=== PATIENT | male | born 1975 | race Hispanic/Latino ===

== ENCOUNTER 2017-01-07 03:17 | Inpatient (IN) | payer OTHER, BC ==
[2017-01-07 03:47] VITALS: BMI 21.5
[2017-01-07 04:41] LABS: BASO % 0.7 % (0.0-2.0); EOS # 0.1 K/uL (0.0-0.7); EOS % 2.2 % (0.0-4.0); HEMATOCRIT 39.5 % (35.0-51.0); LYMPH # 1.6 K/uL (1.0-4.3); LYMPH % 31.1 % (20.0-40.0); MEAN CELL VOLUME 94.1 fl (80.0-94.0); MEAN CORPUSCULAR HEMOGLOBIN 32.7 pg (27.0-31.0); MEAN CORPUSCULAR HGB CONC 34.8 g/dL (33.0-37.0); MEAN PLATELET VOLUME 8.6 fl (7.2-11.7); MONO # 0.7 K/uL (0.0-0.8); MONO % 13.3 % (0.0-10.0); NEUT # 2.7 K/uL (1.8-7.0); NEUT % 52.7 % (50.0-75.0); NRBC % 0.1 % (0.0-0.0); RED CELL DISTRIBUTION WIDTH 12.4 % (11.5-14.5); WHITE BLOOD COUNT 5.1 K/uL (4.8-10.8)
[2017-01-07 04:52] LABS: ALCOHOL SERUM 128 mg/dl (0-10); BLOOD UREA NITROGEN 17 mg/dl (9-20); CALCIUM 9.6 mg/dL (8.4-10.2); CARBON DIOXIDE 21 mmol/L (22-30); CHLORIDE 111 mmol/L (98-107); GFR AFRICAN-AMERICAN > 60; GLUCOSE,RANDOM 95 mg/dL (75-110); POTASSIUM 3.9 MMOL/L (3.6-5.0); SODIUM 145 mmol/l (132-148)
--- NOTE | 2017-01-07 05:26 | ED PDOC ---
HPI: Altered Mental Status Time Seen by Provider: 01/07/17 03:25 Chief Complaint (Nursing): Weakness/Neurological Deficit Chief Complaint (Provider): Weakness/ Neurological Deficit History Per: Patient Onset/Duration Of Symptoms: Days (x10) Additional History Per: Family () Associated Symptoms: denies: Fever Additional Complaint(s): Luis Rivers is a 41 year old male with no pertinent past medical history who presents to the ED accompanied by his with a chief complaint of weakness/ neurological deficit. Associated symptoms include left sided arm and leg weakness onset x10 days prior to arrival, but denies any changes in speech, numbness or tingling on the left side of arm and leg. Both patient and state that patient has been forgetful for the last five days. Past Medical History Reviewed: Historical Data, Nursing Documentation, Vital Signs Vital Signs: Last Vital Signs Temp 98.1 F 01/07/17 03:25 Pulse 78 01/07/17 03:25 Resp 15 01/07/17 03:25 BP 110/57 L 01/07/17 03:25 Pulse Ox 96 01/07/17 03:25 - Medical History PMH: No Chronic Diseases - Surgical History Surgical History: No Surg Hx - Family History Family History: States: Unknown Family Hx - Home Medications Home Medications: Ambulatory Orders Medication Instructions Recorded Aspirin [Aspirin Chewable] 1 tab PO DAILY 01/07/17 Lactobacillus Combination No.8 1 tab PO DAILY 01/07/17 [Adult Probiotic] Multivit-Min/FA/Lycopen/Lutein 1 tab PO DAILY 01/07/17 [Centrum Silver Men Tablet] Keyes-3 Fatty Acids [Fish Oil] 1 tab PO DAILY 01/07/17 - Allergies Allergies/Adverse Reactions: Allergies Allergy/AdvReac Type Severity Reaction Status Date / Time acetaminophen [From Percocet] Allergy ITCHING Verified 01/07/17 15:51 oxycodone [From Percocet] Allergy ITCHING Verified 01/07/17 15:51 Review of Systems ROS Statement: Except As Marked, All Systems Reviewed And Found Negative Constitutional: Negative for: Fever, Chills Eyes: Negative for: Pain Cardiovascular: Negative for: Chest Pain Musculoskeletal: Negative for: Arm Pain, Leg Pain Neurological: Positive for: Weakness (mild left arm and leg ), Other (tingling) . Negative for: Numbness, Change in Speech Physical Exam - Reviewed Nursing Documentation Reviewed: Yes Vital Signs Reviewed: Yes - Physical Exam Appears: Positive for: Well, No Acute Distress Head Exam: Positive for: ATRAUMATIC, NORMAL INSPECTION, NORMOCEPHALIC Skin: Positive for: Normal Color, Warm, Dry Eye Exam: Positive for: Normal appearance, EOMI, PERRL ENT: Positive for: Normal ENT Inspection Neck: Positive for: Normal, Painless ROM, Supple Cardiovascular/Chest: Positive for: Regular Rate, Rhythm. Negative for: Tachycardia Respiratory: Positive for: Normal Breath Sounds. Negative for: Wheezing, Respiratory Distress Gastrointestinal/Abdominal: Positive for: Normal Exam, Soft. Negative for: Tenderness Back: Positive for: Normal Inspection Extremity: Positive for: Normal ROM Neurologic/Psych: Positive for: Alert, wordpress developer II-XII (normal), Oriented, Motor/ Sensory Deficits (mild weakness left arm and left leg), Cerebellar Tests (normal ), Gait (steady). Negative for: Aphasia, Facial Droop - Laboratory Results Result Diagrams: 01/07/17 04:35 01/07/17 04:35 - ECG O2 Sat by Pulse Oximetry: 96 Pulse Ox Interpretation: Normal (RA) Medical Decision Making Medical Decision Makin: Initial Impression: CVA vs. multiple sclerosis vs. brain tumor. other neurological conditions considered but not listed. Initial Plan: * Head CT scan * Alcohol serum stat * Basic Metabolic Panel * Drug Screen * CBC With differentials * Re-Eval 0529: CT HEAD IMPRESSION: 1. Hyperdense or hemorrhagic mass within RIGHT frontal region with extensive surrounding edema, likely primary malignancy or metastasis. Recommend MRI. 2. Incidental/non-acute findings are described above [address] Jones who recommends dexamethasone IV q6 , MRI, and bed elevation. Scribe~Attestation: Documented by Eran Crawford acting as a scribe for Yanelis Schulte MD. Provider~Scribe~Attestation: All medical record entries made by theHanywere at my direction and personally dictated by me. I have reviewed the chart and agree that the record accurately reflects my personal performance of the history, physical exam, medical decision making, and the department course for this patient. I have also personally directed, reviewed, and agree with the discharge instructions and disposition. Disposition - Clinical Impression Clinical Impression: Brain mass - Patient ED Disposition Is Patient to be Admitted: Yes Discussed With : Felipe Addison Doctor Will See Patient In The: Hospital Counseled Patient/Family Regarding: Studies Performed, Diagnosis - Disposition Disposition Time: 06:00 Condition: FAIR - Pt Status Changed To: Hospital Disposition Of: Inpatient - Admit Certification Admit to Inpatient:: After my assessment, the patient will require hospitalization for at least two midnights. This is because of the severity of symptoms shown, intensity of services needed, and/or the medical risk in this patient being treated as an outpatient. - POA Present On Arrival: None
--- NOTE | 2017-01-07 05:29 | CT ---
EXAM: CT Head Without Intravenous Contrast CLINICAL HISTORY: 41 years old, male; Signs and symptoms; Weakness, facial; Additional info: Weakness left side TECHNIQUE: Axial computed tomography images of the head/brain without intravenous contrast. This CT exam was performed using one or more of the following dose reduction techniques: automated exposure control, adjustment of the mA and/or kV according to patient size, and/or use of iterative reconstruction technique. Coronal and sagittal reformatted images were created and reviewed. COMPARISON: No relevant prior studies available. FINDINGS: Brain: Extensive vasogenic edema within RIGHT frontal region. Poorly defined slightly hyperdense lesion within RIGHT frontal region, roughly 2.2 x 2.2 by 2.4 cm. Patent basilar cisterns. Prominent cisterna magna. Grossly preserved wadsworth-white matter differentiation. Midline shift: 0.3-0.4 cm RIGHT to LEFT shift. Ventricles: No hydrocephalus. Bones/joints: No acute fracture. Soft tissues: Unremarkable. Sinuses: No acute sinusitis. Mastoid air cells: No mastoid effusion. Orbits: Unremarkable as visualized. IMPRESSION: 1. Hyperdense or hemorrhagic mass within RIGHT frontal region with extensive surrounding edema, likely primary malignancy or metastasis. Recommend MRI. 2. Incidental/non-acute findings are described above.
[2017-01-07] MEDS ORDERED: Dexamethasone 10 MG in Sodium Chloride 0.9% 50 ML IV ONE (05:38)
[2017-01-07] MEDS ORDERED: Gadodiamide 287 MG/ML VIAL (15ML) IV ONE (07:44)
--- NOTE | 2017-01-07 09:03 | MRI ---
PROCEDURE: MRI BRAIN WITH AND WITHOUT CONTRAST HISTORY: brain mass COMPARISON: 01/07/2017 CT brain TECHNIQUE: Multiplanar, multisequence MR images of the brain were obtained with and without intravenous contrast enhancement. FINDINGS: HEMORRHAGE: None DWI: See discussion below. BRAIN PARENCHYMA: Re-demonstration of extensive vasogenic edema in the right frontal lobe with a roughly 3.3 by 2.8 by 3.1 centimeter heterogeneously enhancing mass in the superior right frontal lobe. Associated mass-effect upon the right frontal horn with minimal midline shift. No atrophy or chronic microvascular ischemic changes. ENHANCEMENT: See discussion above. VENTRICLES: Unremarkable. No hydrocephalus. CRANIUM: Unremarkable. ORBITS: Grossly unremarkable. PARANASAL SINUSES/MASTOIDS: Clear VASCULAR SYSTEM: Skull base flow voids intact. OTHER FINDINGS: None . IMPRESSION: Re-demonstration of extensive vasogenic edema in the right frontal lobe with a roughly 3.3 by 2.8 by 3.1 centimeter heterogeneously enhancing mass in the superior right frontal lobe. Associated mass-effect upon the right frontal horn with minimal midline shift. Findings most likely represent primary malignancy such is glioblastoma/astrocytoma.
[2017-01-07] MEDS ORDERED: Dexamethasone 4 MG in Sodium Chloride 0.9% 50 ML IV SCH ×2 (10:00→20:00)
--- NOTE | 2017-01-07 15:17 | CP.PCM.HP ---
History of Present Illness - History of Present Illness History of Present Illness: CC: Weakness L side. 41 y/o M, came to ER [facility] to be evaluated for Weaknesses of L arm, L leg for 5 days without relief, associated symptom: forgetful for the last 5 days. Worsening symptom: Weight loss for the last few month up to 13 Lb, poor appetite. 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 Pt denied: Fever, chills, n/v/d, abdominal pain, CP, numbness, syncope, slurred speech, SOB, urinary symptoms, sick contact. PMHx: Hx of Lymphoma at 22 yrd old , no other chronic Hx. CT Head: Hyperdence or hemorrhagic mass R frontal lobe with extensive edema likely primary malignancy or metastasis. MRI Brain: Extensive vasogenic edema R frontal lobe, superior R frontal lobe mass. Present on Admission - Present on Admission Any Indicators Present on Admission: No Review of Systems - Constitutional Constitutional: Weight Loss, Weakness - EENT Eyes: Other (negative) Ears: Other (negative) Nose/Mouth/Throat: Other (negative) - Cardiovascular Cardiovascular: Other (negative) - Respiratory Respiratory: Other (nwgative) - Gastrointestinal Gastrointestinal: Other (negative) - Genitourinary Genitourinary: Other (negative) - Musculoskeletal Musculoskeletal: Other (negative) - Integumentary Integumentary: Other (negative) - Neurological Neurological: Abnormal Gait, Confusion, Focal Weakness (LUE , LLE) - Psychiatric Psychiatric: Other (negative) - Endocrine Endocrine: Other (negative) - Hematologic/Lymphatic Hematologic: Other (negative) Past Patient History - Past Medical History & Family History Past Medical History?: Yes Pertinent Family History: Unknown - Past Social History Smoking Status: Former Smoker Alcohol: Occasional Drugs: Cannabis Home Situation {Lives}: With Family - CARDIAC Hx Cardiac Disorders: No - PULMONARY Hx Respiratory Disorders: No - NEUROLOGICAL Hx Neurological Disorder: No - HEENT Hx HEENT Problems: No - RENAL Hx Chronic Kidney Disease: No - ENDOCRINE/METABOLIC Hx Endocrine Disorders: No - HEMATOLOGICAL/ONCOLOGICAL Hx Blood Disorders: Yes Hx AIDS: No Hx Human Immunodeficiency Virus (HIV): No Hx Lymphoma: Yes - INTEGUMENTARY Hx Dermatological Problems: No - MUSCULOSKELETAL/RHEUMATOLOGICAL Hx Musculoskeletal Disorders: No Hx Falls: No - GASTROINTESTINAL Hx Gastrointestinal Disorders: No - GENITOURINARY/GYNECOLOGICAL Hx Genitourinary Disorders: No - PSYCHIATRIC Hx Psychophysiologic Disorder: Yes Hx Substance Use: Yes (MARIJUANA) - SURGICAL HISTORY Hx Surgeries: Yes - ANESTHESIA Hx Anesthesia: Yes Hx Anesthesia Reactions: No Meds Allergies/Adverse Reactions: Allergies Allergy/AdvReac Type Severity Reaction Status Date / Time acetaminophen [From Percocet] Allergy ITCHING Verified 01/07/17 15:51 oxycodone [From Percocet] Allergy ITCHING Verified 01/07/17 15:51 Physical Exam - Constitutional Appears: No Acute Distress - Head Exam Head Exam: NORMAL INSPECTION - Eye Exam Eye Exam: EOMI, PERRL - ENT Exam ENT Exam: Normal Exam - Neck Exam Neck exam: Positive for: Normal Inspection - Respiratory Exam Respiratory Exam: NORMAL BREATHING PATTERN - Cardiovascular Exam Cardiovascular Exam: REGULAR RHYTHM - GI/Abdominal Exam GI & Abdominal Exam: Normal Bowel Sounds, Soft - Extremities Exam Extremities exam: Positive for: normal inspection - Back Exam Back exam: NORMAL INSPECTION - Neurological Exam Neurological exam: Alert, Motor Sensory Deficit (mild weakness Left arm and L leg, mild unsteady gait leaning towards to his left.), Oriented x3 - Psychiatric Exam Psychiatric exam: Normal Mood - Skin Skin Exam: Warm Results - Vital Signs Recent Vital Signs: Last Vital Signs Temp 98.2 F 01/07/17 09:20 Pulse 74 01/07/17 10:14 Resp 18 01/07/17 10:14 BP 124/77 01/07/17 09:20 Pulse Ox 94 L 01/07/17 09:20 reviewed J.P. - Labs Result Diagrams: 01/07/17 04:35 01/07/17 04:35 Labs: reviewed J.P. - Imaging and Cardiology CT scan - head Status: Report reviewed by me (JValerieP.) MRI - head Status: Report reviewed by me (Jelena) Assessment & Plan (1) Mass of right frontal lobe Status: Acute Priority: High Comment: Edema R frontal lobe. Mass most likely malignancy - Assessment and Plan (Free Text) Plan: Pt on Decadron, f/u Neurosurgical, Neuro and Hematology consult. Modalities of treatment discussed with Patient and Patient,s at bedside ,Patient will attempt to contact [facility] for transfering on Monday - Date & Time Date: 01/07/17 Time: 11:30
--- NOTE | 2017-01-07 17:50 | CP.PCM.CON ---
History of Present Illness - History of Present Illness History of Present Illness: Mr. Rivers is a 41-year-old man with a past medical history of stage 3 non- Hodgkin lymphoma that was treated with chemo/radiation 20 years ago, who presented to the ED last night with complaints of progressive left side weakness , confusion, and forgetfulness. MRI of the brain with and without contrast was done after the CT scan showed some concern, and confirmed the presence of a 3.5 X 3.5 cm contrast enhancing lesion with significant surrounding vasogenic edema in the right frontal lobe. The patient denied headache, nausea, visual changes , vomiting, other weakness or sensory changes. He does admit that he has had feelings of "frank-vu" and feelings that he was not in the right place recently. Review of Systems - Review of Systems All systems: reviewed and no additional remarkable complaints except Past Patient History - Past Medical History & Family History Past Medical History?: Yes - Past Social History Smoking Status: Former Smoker Alcohol: Occasional Drugs: Cannabis Home Situation {Lives}: With Family - CARDIAC Hx Cardiac Disorders: No - PULMONARY Hx Respiratory Disorders: No - NEUROLOGICAL Hx Neurological Disorder: No - HEENT Hx HEENT Problems: No - RENAL Hx Chronic Kidney Disease: No - ENDOCRINE/METABOLIC Hx Endocrine Disorders: No - HEMATOLOGICAL/ONCOLOGICAL Hx Blood Disorders: Yes Hx AIDS: No Hx Human Immunodeficiency Virus (HIV): No - INTEGUMENTARY Hx Dermatological Problems: No - MUSCULOSKELETAL/RHEUMATOLOGICAL Hx Musculoskeletal Disorders: No Hx Falls: No - GASTROINTESTINAL Hx Gastrointestinal Disorders: No - GENITOURINARY/GYNECOLOGICAL Hx Genitourinary Disorders: No - PSYCHIATRIC Hx Psychophysiologic Disorder: Yes Hx Substance Use: Yes (MARIJUANA) - SURGICAL HISTORY Hx Surgeries: Yes - ANESTHESIA Hx Anesthesia: Yes Hx Anesthesia Reactions: No Meds Allergies/Adverse Reactions: Allergies Allergy/AdvReac Type Severity Reaction Status Date / Time acetaminophen [From Percocet] Allergy ITCHING Verified 01/07/17 15:51 oxycodone [From Percocet] Allergy ITCHING Verified 01/07/17 15:51 - Medications Medications: Current Medications Dexamethasone 4 mg/ Sodium (Chloride) 50.4 mls @ 100 mls/hr IV 0200,0800,1400, 2000 MELANIE Physical Exam - Constitutional Appears: Well - Head Exam Head Exam: ATRAUMATIC, NORMAL INSPECTION, NORMOCEPHALIC - Eye Exam Eye Exam: EOMI, Normal appearance, PERRL - ENT Exam ENT Exam: Mucous Membranes Moist, Normal Exam - Neck Exam Neck exam: Positive for: Normal Inspection - Respiratory Exam Respiratory Exam: Clear to Auscultation Bilateral, NORMAL BREATHING PATTERN - Cardiovascular Exam Cardiovascular Exam: REGULAR RHYTHM - GI/Abdominal Exam GI & Abdominal Exam: Normal Bowel Sounds, Soft. absent: Tenderness - Neurological Exam Neurological exam: Abnormal Gait, Alert, CN II-XII Intact, Oriented x3, Reflexes Normal - Expanded Neurological Exam Expanded Cranial nerves: EOM's Intact: Normal, Facial Palsey w/Forehead Movement: Abnormal Left Ataxia: No Cerebellar Function: Finger to Nose: Abnormal Left, Heel to Kraus: Abnormal Left , Romberg: Normal Upper motor neuron: Babinski Sign: Abnormal Left, Solo Neglect: Abnormal Left, Pronator Drift: Abnormal Left, Sensory Extinction: Abnormal Left Sensory exam: Lower Extremity Light Touch: Abnormal Left, Lower Extremity Pin Prick: Abnormal Left, Upper Extremity Light Touch: Abnormal Left, Upper Extremity Pin Prick: Abnormal Left Neuro motor strength exam: Left Upper Extremity: 4, Right Upper Extremity: 5, Left Lower Extremity: 4, Right Lower Extremity: 5 DTR: Bicep Left: 3+, Bicep Right: 2+, Brachioradialis Left: 3+, Brachioradialis Right: 2+, Patellar Left: 3+, Patellar Right: 2+ - Psychiatric Exam Psychiatric exam: Normal Affect, Normal Mood - Skin Skin Exam: Dry, Intact, Normal Color, Warm Results - Vital Signs Recent Vital Signs: Last Vital Signs Temp 98.0 F 01/07/17 15:55 Pulse 77 01/07/17 15:55 Resp 18 01/07/17 15:55 BP 151/90 H 01/07/17 15:55 Pulse Ox 94 L 01/07/17 15:55 - Labs Result Diagrams: 01/07/17 04:35 01/07/17 04:35 - Imaging and Cardiology MRI - head Status: Image reviewed by me, Report reviewed by me (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 ) Assessment & Plan (1) Mass of right frontal lobe Assessment and Plan: Will increase dexamethasone to 10 mg Q8 hours, give GI Px, obtain CT of the chest/abdomen and pelvis, PT/OT and start seizure prophylaxis with Keppra 500 mg BID. The patient will likely be transferred to [facility] [place] on Monday. Thank you for this consultation. Status: Acute Priority: High
--- NOTE | 2017-01-07 22:20 | CP.PCM.CON ---
Past Patient History - Past Medical History & Family History Past Medical History?: Yes - Past Social History Smoking Status: Former Smoker Alcohol: Occasional Drugs: Cannabis Home Situation {Lives}: With Family - CARDIAC Hx Cardiac Disorders: No - PULMONARY Hx Respiratory Disorders: No - NEUROLOGICAL Hx Neurological Disorder: No - HEENT Hx HEENT Problems: No - RENAL Hx Chronic Kidney Disease: No - ENDOCRINE/METABOLIC Hx Endocrine Disorders: No - HEMATOLOGICAL/ONCOLOGICAL Hx Blood Disorders: Yes Hx AIDS: No Hx Human Immunodeficiency Virus (HIV): No - INTEGUMENTARY Hx Dermatological Problems: No - MUSCULOSKELETAL/RHEUMATOLOGICAL Hx Musculoskeletal Disorders: No Hx Falls: No - GASTROINTESTINAL Hx Gastrointestinal Disorders: No - GENITOURINARY/GYNECOLOGICAL Hx Genitourinary Disorders: No - PSYCHIATRIC Hx Psychophysiologic Disorder: Yes Hx Substance Use: Yes (MARIJUANA) - SURGICAL HISTORY Hx Surgeries: Yes - ANESTHESIA Hx Anesthesia: Yes Hx Anesthesia Reactions: No Meds Allergies/Adverse Reactions: Allergies Allergy/AdvReac Type Severity Reaction Status Date / Time acetaminophen [From Percocet] Allergy ITCHING Verified 01/07/17 15:51 oxycodone [From Percocet] Allergy ITCHING Verified 01/07/17 15:51 - Medications Medications: Current Medications Dexamethasone 10 mg/ Sodium (Chloride) 51 mls @ 102 mls/hr IVPB Q8 MELANIE Iohexol (Omnipaque 240 (50 Ml)) 50 ml PO ONCE ONE Stop: 01/07/17 22:16 Results - Vital Signs Recent Vital Signs: Last Vital Signs Temp 98.0 F 01/07/17 15:55 Pulse 78 01/07/17 20:26 Resp 18 01/07/17 15:55 BP 151/90 H 01/07/17 15:55 Pulse Ox 96 01/07/17 22:01 - Labs Result Diagrams: 01/07/17 04:35 01/07/17 04:35
[2017-01-08] MEDS: Dexamethasone 10 MG in Sodium Chloride 0.9% 50 ML IVPB SCH ×3 (01:30→17:47)
[2017-01-08] MEDS: Iohexol 240 (50 ml) PO ONE ×2 (01:44→01:47)
--- NOTE | 2017-01-08 02:35 | CP.PCM.CON ---
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 The patient reports to progressive left sided weakness for several days. He also reports to about an intentional 10 pound weightloss. He denies fevers and chills. He has no nightsweats and maintains an excellent energy level. 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 Allergies: Acetaminophen/oxycodone Review of systems: All remaining review of systems including HEENT, cadriovascular, respiratory, gastrointestinal, genitourinary, musculoskeletal, dermatologic, and neurologic are negative unless mentioned in the HPI. Past Patient History - Past Medical History & Family History Past Medical History?: Yes - Past Social History Smoking Status: Former Smoker Alcohol: Occasional Drugs: Cannabis Home Situation {Lives}: With Family - CARDIAC Hx Cardiac Disorders: No - PULMONARY Hx Respiratory Disorders: No - NEUROLOGICAL Hx Neurological Disorder: No - HEENT Hx HEENT Problems: No - RENAL Hx Chronic Kidney Disease: No - ENDOCRINE/METABOLIC Hx Endocrine Disorders: No - HEMATOLOGICAL/ONCOLOGICAL Hx Blood Disorders: Yes Hx AIDS: No Hx Human Immunodeficiency Virus (HIV): No - INTEGUMENTARY Hx Dermatological Problems: No - MUSCULOSKELETAL/RHEUMATOLOGICAL Hx Musculoskeletal Disorders: No Hx Falls: No - GASTROINTESTINAL Hx Gastrointestinal Disorders: No - GENITOURINARY/GYNECOLOGICAL Hx Genitourinary Disorders: No - PSYCHIATRIC Hx Psychophysiologic Disorder: Yes Hx Substance Use: Yes (MARIJUANA) - SURGICAL HISTORY Hx Surgeries: Yes - ANESTHESIA Hx Anesthesia: Yes Hx Anesthesia Reactions: No Meds Allergies/Adverse Reactions: Allergies Allergy/AdvReac Type Severity Reaction Status Date / Time acetaminophen [From Percocet] Allergy ITCHING Verified 01/07/17 15:51 oxycodone [From Percocet] Allergy ITCHING Verified 01/07/17 15:51 - Medications Medications: Current Medications Dexamethasone 10 mg/ Sodium (Chloride) 51 mls @ 102 mls/hr IVPB Q8 MELANIE Last Admin: 01/08/17 01:30 Dose: 102 mls/hr Physical Exam - Head Exam Head Exam: ATRAUMATIC - Eye Exam Eye Exam: Normal appearance - ENT Exam ENT Exam: Mucous Membranes Dry - Respiratory Exam Respiratory Exam: NORMAL BREATHING PATTERN - Cardiovascular Exam Cardiovascular Exam: +S1, +S2 - GI/Abdominal Exam GI & Abdominal Exam: Normal Bowel Sounds - Extremities Exam Extremities exam: Positive for: normal inspection - Neurological Exam Neurological exam: Oriented x3 - Psychiatric Exam Psychiatric exam: Normal Affect, Normal Mood - Skin Skin Exam: Warm Results - Vital Signs Recent Vital Signs: Last Vital Signs Temp 98.4 F 01/08/17 00:11 Pulse 83 01/08/17 00:11 Resp 20 01/08/17 00:11 BP 137/89 01/08/17 00:11 Pulse Ox 93 L 01/08/17 00:11 - Labs Result Diagrams: 01/07/17 04:35 01/07/17 04:35 Assessment & Plan (1) Brain mass Assessment and Plan: agree with steroids CT N/C/A/P ?metastatic disease ultimately will need a tissue diagnosis based on most accessible lesion Thank you for this interesting consult. Status: Acute
[2017-01-08 07:59] LABS: PARTIAL THROMBOPLASTIN TIME 26.1 SECONDS (23.3-32.5)
[2017-01-08] MEDS ORDERED: Iohexol 240 (50 ml) PO ONE (10:26)
[2017-01-08] MEDS ORDERED: Iohexol 300 100 ML IJ ONE (12:30)
[2017-01-08] MEDS ORDERED: Sodium Chloride 0.9% 50 ML IV ONE (12:31)
--- NOTE | 2017-01-08 15:04 | CT ---
PROCEDURE: CT Chest, Abdomen and Pelvis with intravenous contrast HISTORY: new brain mass, hx of hodgkins lymphoma 20 yrs ago COMPARISON: None. TECHNIQUE: IV dose administered: Radiation dose: Total exam DLP = mGy-cm. This CT exam was performed using one or more of the following dose reduction techniques: Automated exposure control, adjustment of the mA and/or kV according to patient size, and/or use of iterative reconstruction technique. FINDINGS: CT CHEST WITH CONTRAST: LUNGS: Clear. No nodule, mass or consolidation. MEDIASTINUM: Unremarkable. Normal caliber aorta and pulmonary arterial trunk. No aortic dissection. Normal size heart. LYMPH NODES: Unremarkable. PLEURA: Unremarkable. No pneumothorax. No pleural fluid. BONES: Unremarkable. OTHER FINDINGS: None. CT ABDOMEN AND PELVIS: LIVER: Unremarkable. No gross lesion or ductal dilatation. GALLBLADDER AND BILE DUCTS: Unremarkable. PANCREAS: Unremarkable. No gross lesion or ductal dilatation. SPLEEN: Unremarkable. ADRENALS: Unremarkable. No mass. KIDNEYS AND URETERS: Unremarkable. No hydronephrosis. No solid mass. VASCULATURE: Unremarkable. No aortic aneurysm. BOWEL: Unremarkable. No obstruction. No gross mural thickening. APPENDIX: Normal appendix. PERITONEUM: Unremarkable. No free fluid. No free air. LYMPH NODES: Abnormal right inguinal lymphadenopathy measuring up to 2 centimeters. BLADDER: Unremarkable. REPRODUCTIVE: Unremarkable. BONES: No acute fracture. OTHER FINDINGS: None. IMPRESSION: Abnormal right inguinal lymphadenopathy measuring up to 2 centimeters.
--- NOTE | 2017-01-08 15:05 | CT ---
PROCEDURE: CT NECK WITH CONTRAST HISTORY: new brain mass, hx of hodgkins lymphoma 20 yrs ago COMPARISON: None TECHNIQUE: CT of the neck with intravenous contrast. Coronal and sagittal reformats generated. Intravenous contrast dose: 100 cc of Omnipaque 300 Radiation dose: DLP 394 mGy-cm This CT exam was performed using one or more of the following dose reduction techniques: Automated exposure control, adjustment of the mA and/or kV according to patient size, and/or use of iterative reconstruction technique. FINDINGS: NASOPHARYNX: Unremarkable. SUPRAHYOID NECK: Unremarkable oropharynx, oral cavity, parapharyngeal space and retropharyngeal space. INFRAHYOID NECK: Unremarkable larynx, hypopharynx, and supraglottic space. Vocal cords intact. MASS: None. GLANDS: Parotid and submandibular glands unremarkable. Normal size thyroid gland, without nodule. LYMPH NODES: Normal. No lymphadenopathy. CERVICAL SPINE: No fracture or focal lesion. VASCULAR STRUCTURES: Unremarkable. OTHER FINDINGS: None. IMPRESSION: Unremarkable contrast enhanced CT of the neck.
--- NOTE | 2017-01-08 16:46 | CP.PCM.PN ---
Subjective - Date & Time of Evaluation Date of Evaluation: 01/08/17 Time of Evaluation: 11:30 - Subjective Subjective: F/U Mass of the frontal Lobe. Pt feels well, no c/o, able to walk, increased dexterity L hand. Objective - Vital Signs/Intake and Output Vital Signs (last 24 hours): Temp Pulse Resp BP Pulse Ox 97.6 F 66 18 130/80 95 01/08/17 16:00 01/08/17 16:00 01/08/17 16:00 01/08/17 16:00 01/08/17 16:00 - Medications Medications: Current Medications Dexamethasone 10 mg/ Sodium (Chloride) 51 mls @ 102 mls/hr IVPB Q8 [facility] Last Admin: 01/08/17 09:41 Dose: 102 mls/hr - Labs Labs: PT 10.8 SECONDS (9.6-11.2) 01/08/17 06:30 INR 1.04 (0.92-1.08) 01/08/17 06:30 APTT 26.1 SECONDS (23.3-32.5) 01/08/17 06:30 - Constitutional Appears: No Acute Distress - Head Exam Head Exam: NORMAL INSPECTION - Eye Exam Eye Exam: EOMI, PERRL - ENT Exam ENT Exam: Normal Exam - Neck Exam Neck Exam: Normal Inspection - Respiratory Exam Respiratory Exam: NORMAL BREATHING PATTERN - Cardiovascular Exam Cardiovascular Exam: REGULAR RHYTHM - GI/Abdominal Exam GI & Abdominal Exam: Soft, Normal Bowel Sounds - Extremities Exam Extremities Exam: Normal Inspection - Back Exam Back Exam: NORMAL INSPECTION - Neurological Exam Neurological Exam: Alert, Oriented x3 Additional comments: Minimal L hemiparesis, increased dexterity L hand. - Psychiatric Exam Psychiatric exam: Normal Mood - Skin Skin Exam: Warm Assessment and Plan (1) Mass of right frontal lobe Status: Acute - Assessment and Plan (Free Text) Plan: CT Neck: Unremarkable, CT Chest/Abd/Pelv showed: Abnormal R Inguinal Lymphadenopathy. Transfer to [facility] ICU to Dr Anup erwin.
--- NOTE | 2017-01-08 19:52 | CON ---
DATE: 01/08/2017 HISTORY OF PRESENT ILLNESS: This is a 41-year-old gentleman that experiencing some forgetfulness and left-sided incoordination and weakness for the past 2 weeks, seen in the [facility] ER marline conrad. CT of the brain and subsequent MRI documented a right frontal tumor with a fair amount of mass effect. He was admitted and neurosurgical evaluation was requested. Interviewing the patient and his spouse today, there really is no further history than the above. PAST MEDICAL HISTORY: Significant for having had Hodgkin's lymphoma approximately 20 years ago with no sequelae. He does not take any prescription medications (with the exception of recently-prescribe d sleeping medications). SOCIAL HISTORY: Works in [employer]. Social history reviewed. PHYSICAL EXAMINATION: The patient is bright, awake, and alert. Speech and mental status are entirel y normal. Pupils equal and reactive, extraocular movements are full. Lower cranial nerves are all i ntact. He has no drift. He has 5/5 strength in the 4 extremities. Sensory exam is grossly intact. Good proprioception. Reflexes very minimally increased on the left, plantar up on the left, mute on the right. Gait was not tested. STUDIES: Show a markedly-enhancing mass/lesion in the right frontal lobe approximately centered to s ome extent 3 cm off the midline, just below the coronal suture, most consistent with unfortunately wi th a primary brain tumor, such as a astrocytoma. IMPRESSION: I discussed all the above to the patient. My recommendation certainly would be a cranio compa and excisional biopsy of this lesion. The patient indicated he is arranging a transfer to [facility] tomorrow. I indicated to him that should he change his mind and wished to be albert ated here at [place], I would more than happy to arrange operative scheduling in the next day or 2. Marcel Jones MD cc: [phone] TT: 01/08/2017 19:52:11 Confirmation # [id number] Dictation # [id number] vn
--- NOTE | 2017-01-08 20:53 | CP.PCM.PN ---
Subjective - Date & Time of Evaluation Date of Evaluation: 01/08/17 Time of Evaluation: 20:50 - Subjective Subjective: Mr. Rivers was seen and examined today at bedside. He stated that he was feeling significantly better today and that his left sided weakness had improved. He did not have any heart burn, abdominal pain, sleep difficulty, headache, nausea, visual changes or any other complaints. Objective - Vital Signs/Intake and Output Vital Signs (last 24 hours): Temp Pulse Resp BP Pulse Ox 97.6 F 66 18 130/80 95 01/08/17 16:00 01/08/17 16:00 01/08/17 16:00 01/08/17 16:00 01/08/17 16:00 - Medications Medications: Current Medications Dexamethasone 10 mg/ Sodium (Chloride) 51 mls @ 102 mls/hr IVPB Q8 [facility] Last Admin: 01/08/17 17:47 Dose: 102 mls/hr - Labs Labs: PT 10.8 SECONDS (9.6-11.2) 01/08/17 06:30 INR 1.04 (0.92-1.08) 01/08/17 06:30 APTT 26.1 SECONDS (23.3-32.5) 01/08/17 06:30 - Constitutional Appears: Well - Head Exam Head Exam: ATRAUMATIC, NORMAL INSPECTION, NORMOCEPHALIC - Eye Exam Eye Exam: EOMI, Normal appearance, PERRL - ENT Exam ENT Exam: Mucous Membranes Moist, Normal Exam - Neck Exam Neck Exam: Full ROM, Normal Inspection. absent: Lymphadenopathy - Respiratory Exam Respiratory Exam: Clear to Ausculation Bilateral, NORMAL BREATHING PATTERN - Cardiovascular Exam Cardiovascular Exam: REGULAR RHYTHM, +S1, +S2. absent: Murmur - GI/Abdominal Exam GI & Abdominal Exam: Soft, Normal Bowel Sounds. absent: Tenderness - Rectal Exam Rectal Exam: Deferred - Neurological Exam Neurological Exam: Abnormal Gait, Alert, Awake, CN II-XII Intact, Oriented x3 Neuro motor strength exam: Left Upper Extremity: 4, Right Upper Extremity: 5, Left Lower Extremity: 4, Right Lower Extremity: 5 - Psychiatric Exam Psychiatric exam: Normal Affect, Normal Mood - Skin Skin Exam: Dry, Intact, Normal Color, Warm Assessment and Plan (1) Mass of right frontal lobe Assessment & Plan: Continue current steroid regimen and AED for prophylaxis. Continue GI Px and PT /OT. Plan for transfer to specialty center tomorrow. Status: Acute
--- NOTE | 2017-01-08 21:09 | CP.PCM.PN ---
Subjective - Date & Time of Evaluation Date of Evaluation: 01/08/17 Time of Evaluation: 18:00 - Subjective Subjective: Feeling better Objective - Vital Signs/Intake and Output Vital Signs (last 24 hours): Temp Pulse Resp BP Pulse Ox 97.6 F 66 18 130/80 95 01/08/17 16:00 01/08/17 16:00 01/08/17 16:00 01/08/17 16:00 01/08/17 16:00 - Medications Medications: Current Medications Dexamethasone 10 mg/ Sodium (Chloride) 51 mls @ 102 mls/hr IVPB Q8 [facility]EL[facility] Last Admin: 01/08/17 17:47 Dose: 102 mls/hr Levetiracetam (Keppra) 500 mg PO BID MELANIE - Labs Labs: PT 10.8 SECONDS (9.6-11.2) 01/08/17 06:30 INR 1.04 (0.92-1.08) 01/08/17 06:30 APTT 26.1 SECONDS (23.3-32.5) 01/08/17 06:30 - Head Exam Head Exam: ATRAUMATIC - Eye Exam Eye Exam: Normal appearance - ENT Exam ENT Exam: Mucous Membranes Dry - Respiratory Exam Respiratory Exam: NORMAL BREATHING PATTERN - Cardiovascular Exam Cardiovascular Exam: +S1, +S2 - GI/Abdominal Exam GI & Abdominal Exam: Normal Bowel Sounds - Extremities Exam Extremities Exam: Normal Inspection Assessment and Plan (1) Brain mass Assessment & Plan: CT N/C/A/P revealed 2cm right inguinal lymphadenopathy pt arranging for transfer to [facility] Status: Acute
[2017-01-09] MEDS: Dexamethasone 10 MG in Sodium Chloride 0.9% 50 ML IVPB SCH ×3 (01:38→16:27)
[2017-01-09] MEDS ORDERED: Pneumococcal 23-Valent Vaccine IM ONE (13:21)
[2017-01-09 15:42] VITALS: RESP 20
--- NOTE | 2017-01-09 16:15 | CP.PCM.PN ---
Subjective - Date & Time of Evaluation Date of Evaluation: 01/09/17 Time of Evaluation: 11:00 - Subjective Subjective: F/U Mass R frontal lobe. Pt doing well, ambulating through the room to without difficulty, LUE increased strength and dexterity. Objective - Vital Signs/Intake and Output Vital Signs (last 24 hours): Temp Pulse Resp BP Pulse Ox 98.2 F 62 20 115/66 95 01/09/17 15:41 01/09/17 15:41 01/09/17 15:41 01/09/17 15:41 01/09/17 15:41 - Medications Medications: Current Medications Dexamethasone 10 mg/ Sodium (Chloride) 51 mls @ 102 mls/hr IVPB Q8 [facility] Last Admin: 01/09/17 08:16 Dose: 102 mls/hr Levetiracetam (Keppra) 500 mg PO BID [facility] Last Admin: 01/09/17 08:17 Dose: 500 mg - Labs Labs: PT 10.8 SECONDS (9.6-11.2) 01/08/17 06:30 INR 1.04 (0.92-1.08) 01/08/17 06:30 APTT 26.1 SECONDS (23.3-32.5) 01/08/17 06:30 - Constitutional Appears: No Acute Distress - Head Exam Head Exam: NORMAL INSPECTION - Eye Exam Eye Exam: PERRL - ENT Exam ENT Exam: Normal Oropharynx - Neck Exam Neck Exam: Normal Inspection - Respiratory Exam Respiratory Exam: NORMAL BREATHING PATTERN - Cardiovascular Exam Cardiovascular Exam: REGULAR RHYTHM - GI/Abdominal Exam GI & Abdominal Exam: Soft, Normal Bowel Sounds - Extremities Exam Extremities Exam: Normal Inspection - Back Exam Back Exam: NORMAL INSPECTION - Neurological Exam Neurological Exam: Alert, Oriented x3 Additional comments: Minimal L hemiparesis. - Psychiatric Exam Psychiatric exam: Normal Mood - Skin Skin Exam: Warm Assessment and Plan (1) Mass of right frontal lobe Status: Acute - Assessment and Plan (Free Text) Plan: Pt able to walk to the room without any deficit in the LLE, Awaiting transfer to [facility] ICU neurological unit.
[2017-01-09 23:41] VITALS: BP 114/68; PULSE 99; TEMP 98.3; O2SAT 95
== END 2017-01-09 20:00 | disposition short-term general hospital (02) | DRG 70 ==
LOC: H.ER 03:17 → H.ERHOLD 06:06 → H.TEL 09:13
PROVIDERS: ADMIT Internal Medicine Pulmonary Disease; ATTEND Internal Medicine Pulmonary Disease
PROC: 3E0234Z Introduction of Serum, Toxoid and Vaccine into Muscle, Percutaneous Approach (ICD-10-PCS; principal; 2017-01-09)
DX: G93.9 Disorder of brain, unspecified (principal); G93.6 Cerebral edema; Z85.72 Personal history of non-Hodgkin lymphomas; G81.94 Hemiplegia, unspecified affecting left nondominant side; R59.1 Generalized enlarged lymph nodes; Z23 Encounter for immunization; Z88.6 Allergy status to analgesic agent; Z88.5 Allergy status to narcotic agent